=== PATIENT | male | born 1950 | race Caucasian/White ===

== ENCOUNTER 2016-05-11 05:08 | Day surgery (SDC) | payer OTHER ==
[~2016-05-11 05:08] MED LIST: CIP5 PO; COREG3 PO; DSS PO; FLOMAX4 PO; NORCO1 TA2 PO; NORV5 PO; PROAIR HFA INH; SPIRIVA INH; SYMBICORT 160/41 INH INH
== END 2016-05-11 09:00 | disposition home or self-care (01) ==
LOC: SDC 05:08
PROVIDERS: Orthopaedic Surgery
PROC: 3E0R3BZ Introduction of Anesthetic Agent into Spinal Canal, Percutaneous Approach (ICD-10-PCS; 2016-05-11)
PROC: 3E0R33Z Introduction of Anti-inflammatory into Spinal Canal, Percutaneous Approach (ICD-10-PCS; principal; 2016-05-11 07:15)
DX: M54.17 Radiculopathy, lumbosacral region (principal); Z88.2 Allergy status to sulfonamides; Z87.891 Personal history of nicotine dependence; I10 Essential (primary) hypertension; J44.9 Chronic obstructive pulmonary disease, unspecified; M19.90 Unspecified osteoarthritis, unspecified site; Z85.46 Personal history of malignant neoplasm of prostate; Z98.890 Other specified postprocedural states; Z79.899 Other long term (current) drug therapy
CPT/HCPCS: 82962; J1040; J2250; J3010; Q9967

== ENCOUNTER 2016-05-25 06:12 | Day surgery (SDC) | payer OTHER | END 2016-05-25 08:55 | disposition home or self-care (01) | LOC: SDC 06:12 | PROVIDERS: Orthopaedic Surgery | PROC: 3E0R3BZ Introduction of Anesthetic Agent into Spinal Canal, Percutaneous Approach (ICD-10-PCS; 2016-05-25) | PROC: 3E0R33Z Introduction of Anti-inflammatory into Spinal Canal, Percutaneous Approach (ICD-10-PCS; principal; 2016-05-25 07:00) | DX: M54.16 Radiculopathy, lumbar region (principal); M54.5 Low back pain; Z85.46 Personal history of malignant neoplasm of prostate; Z88.2 Allergy status to sulfonamides; I10 Essential (primary) hypertension; J44.9 Chronic obstructive pulmonary disease, unspecified; M19.90 Unspecified osteoarthritis, unspecified site; Z79.899 Other long term (current) drug therapy; Z79.891 Long term (current) use of opiate analgesic | CPT/HCPCS: 82962; J1040; J2250; J3010; Q9967 ==